=== PATIENT | female | born 1990 | race Two or more races ===

== ENCOUNTER 2024-06-09 07:30 | Inpatient (IN) ==
--- NOTE | 2024-05-27 15:39 | Anesthesiology Consultation ---
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 No known infectious disease contacts in past 10 days or current infectious disease symptoms. No recent travel outside the country. Patient seen by cardiology clinic 03/02/2024 = patient seen for initial cardiology clinic in the setting of IVF gestation. uncomplicated. Echo from today reviewed. Echo appears normal with no evidence of major congenital heart disease, myocardial dysfunction, rhythm disturbances, pericardial effusion or other acute cardiovascular concerns. No contraindications for her delivering at [facility] as she is planning. Pediatric cardiology team can be contacted anytime should there be an acute concern about the cardiovascular status. No need to follow her in cardiology clinic at this time nor do I see a need for empiric imaging of the fetus. Would recommend routine care and with nursery and well-child checks per AAP guidelines. ECHO 02/26/24= Normal LV/RV dimensions and systolic function. Normal LA/RA dimensions. Normal valve morphology/function. Normal cardiovascular sinus, heart rate and rhythm. No vascular abnormalities. No pericardial effusion. History Surgery Operation Date: 06/09/24 07:30 Proposed Procedures p Section (Delivery of Baby Through Abdominal Incision) - Awilda Hsieh MD Height/Weight Height: 5 ft 3 in Weight: 88.451 kg Allergies Allergy/AdvReac Type Severity Reaction Status Date / Time No Known Allergies Allergy Verified 05/27/24 14:39 Medications Home Medications Medication Instructions Recorded Confirmed Last Taken folic acid 1 mg tablet 800 mcg PO DAILY 05/29/22 05/27/24 05/14/24 21:00 omega-3 fatty acids 1,000 mg 1,400 mg PO DAILY 07/08/23 05/27/24 05/20/24 capsule calcium carbonate (Calcium 600) 600 mg PO DAILY 02/17/24 05/27/24 05/14/24 21:00 cholecalciferol (vitamin D3) 62.5 50 mcg PO DAILY 02/17/24 05/27/24 05/14/24 21:00 mcg (2,500 unit) capsule aspirin 81 mg capsule 81 mg PO DAILY 05/15/24 05/27/24 05/20/24 levothyroxine 75 mcg tablet 75 mcg PO QAM 05/27/24 05/27/24 Unknown biwbsqnr-hyk-[id number]-FA 1 mg 1 tab PO DAILY 05/27/24 05/27/24 Unknown tablet Past Medical History Medical History Fibroid outside uterus History of COVID-19 (2021) no current symptoms as of PAT nursing interview 05/27/24 History of endometriosis Hypothyroidism Unique anesthetic considerations on preoperative anesthesia assessment - no hx n/v with anesthesia, pt requests to have patch behind for c/s to prevent/precaution. - voices she had patch with endometriosis sx. Past Family History Family History Grandmother (Maternal) Diabetes Grandmother (Paternal) Diabetes Father Hypertension Denies family history of Ovarian cancer Myocardial infarction Breast cancer Lung cancer Colorectal cancer Stroke Past Surgical History Surgical History History of laparoscopic cholecystectomy History of surgery for endometriosis , laparoscopic History of surgery IVF tx x2. History of unilateral salpingectomy right Social History Smoking Status: Never smoker Do You Dip or Chew Tobacco: No Hx Alcohol Use: No (not in last 3 yrs, hx social prior) Hx Substance Use: No substance use type: does not use Testing Laboratory Results 04/25/24= TSH: 0.71
[2024-06-09] MEDS ORDERED: OXYTOCIN 30 UNITS/NSS 30 UNITS/500 ML BAG IV PRN (08:31)
[2024-06-09] MEDS ORDERED: CALCIUM CARBONATE 500 MG CHEWABLE TAB PO PRN (08:31)
[2024-06-09] MEDS ORDERED: LIDOCAINE 1% LOCAL 20 ML VIAL INFIL PRN (08:31)
[2024-06-09] MEDS: LACTATED RINGER'S 1,000 ML IV PRN (08:59)
[2024-06-09 09:26] LABS: Hematocrit (blood only) 39.8 % (37.0-47.0); Hemoglobin 13.3 g/dl (12.0-16.0); Mean Corpuscular Hemoglobin 29.3 pg (25.0-34.0); Mean Corpuscular Hgb Conc 33.4 g/dL (32.0-36.0); Mean Corpuscular Volume 87.7 fL (80.0-100.0); Mean Platelet Volume 13.5 fL (9.4-12.4); Platelet Count 122 K/uL (130-400); RDW Coefficient of Variation 13.1 % (11.5-14.5); Red Blood Count 4.54 M/uL (4.20-5.40); White Blood Count 8.26 K/ul (4.8-10.8)
--- NOTE | 2024-06-09 09:43 | History & Physical Report ---
Date of Service June 09, 2024 Assessment & Plan (1) resulting from in vitro fertilization, antepartum: (2) Hypothyroid in , antepartum: Plan 33 yo G1 at 39 1/7 wga presents for eiol as now cephalic VSS Fetus cat 1 Labor - closed, will start with pv cytotec after allowing to have toast as remained npo in case baby flipped again GBS neg epidural prn Admission and Anticipated Discharge Date Admission Date: June 09, 2024 History of Present Illness Chief Complaint: eIOL Primary Care Provider: Angel Torrez, 33 yo G1 at 39 1/7 wga presents for eiol. +FM; denies ctx, LOF, VB. 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 hx: G1 regular cycles denies hx stis Allergies Allergy/AdvReac Type Severity Reaction Status Date / Time No Known Allergies Allergy Verified 06/08/24 13:25 Home Medications Medication Instructions Recorded Confirmed Type folic acid 1 mg tablet 800 mcg PO DAILY 05/29/22 06/09/24 History calcium carbonate (Calcium 600) 600 mg PO DAILY 02/17/24 06/09/24 History cholecalciferol (vitamin D3) 62.5 50 mcg PO DAILY 02/17/24 06/09/24 History mcg (2,500 unit) capsule aspirin 81 mg capsule 81 mg PO DAILY 05/15/24 06/09/24 History levothyroxine 75 mcg tablet 75 mcg PO QAM 05/27/24 06/09/24 History qjuqpkjx-[id number]-Ll-FA 1 mg 1 tab PO DAILY 05/27/24 06/09/24 History tablet Patient History Medical History Fibroid outside uterus History of COVID-19 (2021) no current symptoms as of PAT nursing interview 05/27/24 History of endometriosis Hypothyroidism Unique anesthetic considerations on preoperative anesthesia assessment - no hx n/v with anesthesia, pt requests to have patch behind for c/s to prevent/precaution. - voices she had patch with endometriosis sx. Surgical History History of laparoscopic cholecystectomy History of surgery for endometriosis , laparoscopic History of surgery IVF tx x2. History of unilateral salpingectomy right Family History Grandmother (Maternal) Diabetes Grandmother (Paternal) Diabetes Father Hypertension Denies family history of Ovarian cancer Myocardial infarction Breast cancer Lung cancer Colorectal cancer Stroke Social History Smoking Status: Never smoker Second Hand Exposure: No; Do You Dip or Chew Tobacco: No; Hx Alcohol Use: No (not in last 3 yrs, hx social prior) Hx Substance Use: No Preferred Language: Occitan Communication Ability: Effective Visual Impairment: No Limitations Hearing Ability: Normal Critical Care Cns Required: No Beliefs That Will Affect Care: None marital status: marital status details: Devin Syed (35) [phone] Current Living Situation: Spouse Current Living Situation Comment: Pt lives with her current occupational status: 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 [employer] How many Children do You have: 0 Other Information That Helps Us Care for You: No Feels Safe at Home: Yes Safety Concerns: Feels Safe At This Time Childhood Exposure to Second-Hand Smoke: No caffeine: Yes Dental Care, Regularly: No Physical Activity Frequency: 5-6 Times per Week Seatbelt Use: always Sunscreen Use: Yes Assistive Devices: None Physical Exam Genitourinary: OB Exam Abdomen: + vertex (confirmed by bsus) and + estimated weight (7-8) Manual OB Exam: + cervical dilation (closed), + cervical effacement 50% and + station -2 OB Exam Monitor Tracing: + external FHT monitor used, + external uterine monitor used and + category I (135/mod/+accel/- decel) Results & Data Vital Signs (Past 12 Hours) Vital Signs Temp Pulse Resp BP O2 Del Method 06/09/24 09:00 88 128/81 06/09/24 08:28 71 130/76 06/09/24 08:22 97.9 F 115 H 18 132/80 Room Air 06/09/24 08:00 115 H 132/80 Laboratory Results OB Labs: Blood Type AB Positive 11/27/23 Antibody Screen NEGATIVE 11/27/23 Hgb 13.8 g/dl (12.0-16.0) 06/04/24 Hct 41.0 % (37.0-47.0) 06/04/24 MCV 88.7 fL (80.0-100.0) 06/04/24 Plt Count 136 K/uL (130-400) 06/04/24 Rubella IgG Antibody Immune (Immune) 11/27/23 Treponema pallidum Ab Negative (Negative) 03/25/24 Hep Bs Antigen Negative (Negative) 11/27/23 Hepatitis C Antibody Negative (Negative) 11/27/23 HIV 1&2 Ab/P24 Ag 4thGn Negative (Negative) 11/27/23 Glucose 1 Hr 50 gm 162 mg/dl (70-130) H 03/25/24 OB Optional Labs: Chlamydia trachomatis RNA Not Detected (NotDetected) 11/27/23 Neisseria gonorrhoeae RNA Not Detected (NotDetected) 11/27/23 Thyroid Stimulating Hormone (TSH) 1.541 uIu/ml (0.300-4.500) 07/07/23 gbs neg low risk cfdna Diagnostic Findings 05/20 EFW 45%, AC 43%, post plac Coding Level of Care Code None Diagnoses resulting from in vitro fertilization, antepartum O09.819 Hypothyroid in , antepartum O99.280; E03.9
[2024-06-09] MEDS: miSOPROStoL 25 MCG TAB PV STA (10:47)
--- NOTE | 2024-06-09 15:51 | Labor Progress Brief Note ---
Date of Service June 09, 2024 Subjective Feeling some cramps, painful when she has them Assessment & Plan (1) resulting from in vitro fertilization, antepartum: (2) Hypothyroid in , antepartum: Plan 33 yo G1 at 39 1/7 wga presents for eiol as now cephalic VSS Fetus cat 1 Labor - cervix a little lower and external os now starting to dilate but internal still closed. Will place another cytotec GBS neg epidural prn Admission and Anticipated Discharge Date Admission Date: June 09, 2024 Physical Exam Genitourinary: Manual OB Exam: + cervical dilation fingertip (external os 1, int os still closed), + cervical effacement 50% and + station -2 OB Exam Monitor Tracing: + external FHT monitor used, + external uterine monitor used (irreg ctx) and + category I (135/mod/+accel/-decel) Results & Data Vital Signs (Past 12 Hours) Vital Signs Temp Pulse Resp BP O2 Del Method 06/09/24 15:37 85 113/65 06/09/24 15:25 18 06/09/24 15:25 18 06/09/24 14:00 18 06/09/24 14:00 18 06/09/24 13:48 90 116/79 06/09/24 13:31 103 H 139/83 06/09/24 12:04 88 119/74 06/09/24 11:30 20 06/09/24 11:30 20 06/09/24 11:05 18 06/09/24 11:05 97.9 F 18 06/09/24 11:01 95 H 127/80 06/09/24 11:00 78 128/80 06/09/24 10:01 86 122/81 06/09/24 10:00 16 06/09/24 10:00 16 06/09/24 09:00 88 128/81 06/09/24 08:28 71 130/76 06/09/24 08:22 97.9 F 115 H 18 132/80 Room Air 06/09/24 08:00 115 H 132/80 Coding Level of Care Code None Diagnoses resulting from in vitro fertilization, antepartum O09.819 Hypothyroid in , antepartum O99.280; E03.9
[2024-06-09] MEDS: miSOPROStoL 25 MCG TAB PV ONE ×2 (15:59→20:48)
[2024-06-09] MEDS: miSOPROStoL 25 MCG TAB ONE (16:00)
--- NOTE | 2024-06-09 20:35 | Labor Progress Brief Note ---
Date of Service June 09, 2024 Subjective Feeling some more cramps Assessment & Plan (1) resulting from in vitro fertilization, antepartum: (2) Hypothyroid in , antepartum: Plan 33 yo G1 at 39 1/7 wga presents for eiol as now cephalic VSS Fetus cat 1 Labor - able to insert one finger to internal os now and palpate head, however cervix still very long. Would benefit from another dose of cytotec before trying bulb GBS neg epidural prn Admission and Anticipated Discharge Date Admission Date: June 09, 2024 Physical Exam Genitourinary: Manual OB Exam: + cervical dilation 1 cm, + cervical effacement 20% and + station -2 OB Exam Monitor Tracing: + external FHT monitor used, + external uterine monitor used (q5-7) and + category I (135/mod/+accel/-decel) Results & Data Vital Signs (Past 12 Hours) Vital Signs Temp Pulse Resp BP 06/09/24 19:03 78 134/81 06/09/24 19:00 98.1 F 18 06/09/24 18:02 95 H 126/62 06/09/24 17:07 83 121/72 06/09/24 16:37 78 120/77 06/09/24 16:07 77 118/73 06/09/24 15:55 16 06/09/24 15:55 98.1 F 16 06/09/24 15:37 85 113/65 06/09/24 15:25 18 06/09/24 15:25 18 06/09/24 14:00 18 06/09/24 14:00 18 06/09/24 13:48 90 116/79 06/09/24 13:31 103 H 139/83 06/09/24 12:04 88 119/74 06/09/24 11:30 20 06/09/24 11:30 20 06/09/24 11:05 18 06/09/24 11:05 97.9 F 18 06/09/24 11:01 95 H 127/80 06/09/24 11:00 78 128/80 06/09/24 10:01 86 122/81 06/09/24 10:00 16 06/09/24 10:00 16 06/09/24 09:00 88 128/81 Coding Level of Care Code None Diagnoses resulting from in vitro fertilization, antepartum O09.819 Hypothyroid in , antepartum O99.280; E03.9
[2024-06-10] MEDS ORDERED: ePHEDrine sulfate 50 MG/ML AMP IV PRN (02:04)
[2024-06-10] MEDS ORDERED: NALOXONE HCL 1 MG in SODIUM CHLORIDE 0.9% 1,000 ML IV PRN ×2 (02:04→14:20)
[2024-06-10] MEDS ORDERED: BUPIVACAINE 0.25% PF 30 ML VIAL EPI PRN (02:04)
[2024-06-10] MEDS ORDERED: NALBUPHINE HCL INJ 10 MG/ML AMP IV PRN ×2 (02:04→14:20)
[2024-06-10] MEDS ORDERED: SODIUM CHLORIDE 0.9% PF INJ 10 ML VIAL EPI PRN (02:04)
[2024-06-10] MEDS ORDERED: diphenhydrAMINE 50 MG/ML VIAL IV PRN ×2 (02:04→14:20)
[2024-06-10] MEDS ORDERED: LIDOCAINE 2% MPF LOCAL 5 ML VIAL EPI PRN (02:04)
[2024-06-10] MEDS ORDERED: ROPIVACAINE 0.5% PF 5 MG/ML 20 ML VIAL EPI PRN (02:04)
[2024-06-10] MEDS ORDERED: fentaNYL citrate PF 100 MCG/2 ML VIAL EPI PRN (02:04)
[2024-06-10] MEDS ORDERED: NALOXONE HCL 0.4 MG/1 ML VIAL/CARP IV PRN ×2 (02:04→14:20)
--- NOTE | 2024-06-10 02:06 | Anesthesiology Consultation ---
Date of Service June 10, 2024 Assessment & Plan (1) Encounter for pre-operative examination: Chart Review Chart Review: Patient NOT seen in Pre Admission Testing and Acceptable Risk for Labor Epidural Consults Requested none History Surgery Operation Date: 06/09/24 07:30 Proposed Procedures p Section (Delivery of Baby Through Abdominal Incision) - Awilda Hsieh MD Height/Weight Height: 5 ft 3 in Weight: 90.718 kg Allergies Allergy/AdvReac Type Severity Reaction Status Date / Time No Known Allergies Allergy Verified 06/08/24 13:25 Medications Home Medications Medication Instructions Recorded Confirmed Last Taken folic acid 1 mg tablet 800 mcg PO DAILY 05/29/22 06/09/24 06/08/24 20:00 calcium carbonate (Calcium 600) 600 mg PO DAILY 02/17/24 06/09/24 06/08/24 20:00 cholecalciferol (vitamin D3) 62.5 50 mcg PO DAILY 02/17/24 06/09/24 06/08/24 20:00 mcg (2,500 unit) capsule aspirin 81 mg capsule 81 mg PO DAILY 05/15/24 06/09/24 06/08/24 10:00 levothyroxine 75 mcg tablet 75 mcg PO QAM 05/27/24 06/09/24 06/09/24 05:00 ehkrimgd-qxx-Yq-FA 1 mg 1 tab PO DAILY 05/27/24 06/09/24 06/08/24 20:00 tablet Active Medications Generic Name Dose Route Start Last Admin Trade Name Freq PRN Reason Stop Dose Admin Lactated Ringer's 1,000 mls @ 125 mls/hr 06/09/24 08:31 06/10/24 01:30 Lr IV 06/10/24 08:30 999 mls/hr .Q8H PRN Infusion L&D Protocol Protocol Past Medical History Medical History History of COVID-19 (2021) no current symptoms as of PAT nursing interview 05/27/24 Unique anesthetic considerations on preoperative anesthesia assessment - no hx n/v with anesthesia, pt requests to have patch behind for c/s to prevent/precaution. - voices she had patch with endometriosis sx. Fibroid outside uterus History of endometriosis Hypothyroidism Past Family History Family History Grandmother (Maternal) Diabetes Grandmother (Paternal) Diabetes Father Hypertension Denies family history of Ovarian cancer Myocardial infarction Breast cancer Lung cancer Colorectal cancer Stroke Past Surgical History Surgical History History of surgery IVF tx x2. History of surgery for endometriosis , laparoscopic History of unilateral salpingectomy right History of laparoscopic cholecystectomy Social History Smoking Status: Never smoker Do You Dip or Chew Tobacco: No Hx Alcohol Use: No (not in last 3 yrs, hx social prior) Hx Substance Use: No substance use type: does not use Physical Exam Vital Signs Last Vital Signs Temp 98.1 F 06/09/24 22:43 Pulse 78 06/10/24 01:56 Resp 18 06/09/24 22:43 BP 112/71 06/09/24 23:10 Pulse Ox 99 06/10/24 01:56 O2 Del Method Room Air 06/09/24 08:22 Testing Laboratory Results 06/09/24 08:55 Blood Type AB Positive 06/09/24 08:55 Antibody Screen NEGATIVE 06/09/24 08:55
[2024-06-10] MEDS: BUPIVACAINE 0.25% PF 30 ML VIAL ONE (02:32)
[2024-06-10] MEDS: fentaNYL citrate PF 100 MCG/2 ML VIAL ONE (02:32)
[2024-06-10] MEDS: LIDOCAINE 2%/EPINEPHRINE 1:200,000 20 ML PF ONE (02:32)
[2024-06-10] MEDS: SODIUM CHLORIDE 0.9% PF INJ 10 ML VIAL ONE (02:32)
[2024-06-10] MEDS: fentANYL 2 MCG/ML BUPIVacaine 0.125%-NSS 100ML BAG ONE (02:33)
[2024-06-10] MEDS: ePHEDrine sulfate 50 MG/ML AMP ONE (02:36)
[2024-06-10] MEDS: BUPIVACAINE 0.25% PF 30 ML VIAL EPI STA (02:36)
[2024-06-10] MEDS: LIDOCAINE 2%/EPINEPHRINE 1:200,000 20 ML PF EPI STA (02:37)
[2024-06-10] MEDS: fentaNYL citrate PF 100 MCG/2 ML VIAL EPI STA (02:37)
[2024-06-10] MEDS: SODIUM CHLORIDE 0.9% PF INJ 10 ML VIAL EPI STA (02:37)
--- NOTE | 2024-06-10 03:15 | Labor Progress Brief Note ---
Date of Service June 10, 2024 Subjective resting after epidural Assessment & Plan (1) resulting from in vitro fertilization, antepartum: (2) Hypothyroid in , antepartum: Plan 33 yo G1 at 39 1/7 wga presents for eiol as now cephalic VSS Fetus cat 1 Labor - discussed gonzalez bulb placement during last check and pt desired epidural first, now has gotten it so 35cc bulb placed after verbal consent obtained. Will start pit as well GBS neg epidural in place Admission and Anticipated Discharge Date Admission Date: June 09, 2024 Physical Exam Genitourinary: OB Exam Abdomen: + vertex (confirmed by bsus) Manual OB Exam: + cervical dilation 1 cm, + cervical effacement 30% and + station -2 OB Exam Monitor Tracing: + external FHT monitor used, + external uterine monitor used (q5-7) and + category I (135/mod/+accel/-decel) Results & Data Vital Signs (Past 12 Hours) Vital Signs Temp Pulse Resp BP Pulse Ox 06/10/24 03:08 94 H 97 06/10/24 03:03 98 06/10/24 03:03 70 06/10/24 03:03 75 94/55 L 06/10/24 02:58 77 96/52 L 97 06/10/24 02:53 97 06/10/24 02:53 86 06/10/24 02:53 85 99/57 L 06/10/24 02:48 98 06/10/24 02:48 80 06/10/24 02:48 95 H 97/54 L 06/10/24 02:43 93 H 98 06/10/24 02:42 96 H 106/57 L 06/10/24 02:40 16 06/10/24 02:40 86 16 104/58 L 06/10/24 02:38 92 H 111/58 L 97 06/10/24 02:36 91 H 110/59 L 06/10/24 02:35 18 06/10/24 02:35 18 06/10/24 02:34 89 112/60 06/10/24 02:33 85 97 06/10/24 02:32 82 112/62 06/10/24 02:30 96 H 18 134/86 06/10/24 02:28 97 06/10/24 02:28 93 H 06/10/24 02:28 88 130/81 06/10/24 02:23 86 97 06/10/24 02:18 94 H 99 06/10/24 02:13 73 98 06/10/24 02:08 82 98 06/10/24 01:56 78 99 06/10/24 01:51 80 98 06/10/24 01:46 73 98 06/10/24 01:41 77 98 06/10/24 01:36 78 98 06/09/24 23:10 76 112/71 06/09/24 23:09 80 137/93 06/09/24 22:47 82 127/93 06/09/24 22:43 18 06/09/24 22:43 98.1 F 18 06/09/24 19:03 78 134/81 06/09/24 19:00 98.1 F 18 06/09/24 18:02 95 H 126/62 06/09/24 17:07 83 121/72 06/09/24 16:37 78 120/77 06/09/24 16:07 77 118/73 06/09/24 15:55 16 06/09/24 15:55 98.1 F 16 06/09/24 15:37 85 113/65 06/09/24 15:25 18 06/09/24 15:25 18 Coding Level of Care Code None Diagnoses resulting from in vitro fertilization, antepartum O09.819 Hypothyroid in , antepartum O99.280; E03.9
[2024-06-10] MEDS: OXYTOCIN 30 UNITS/NSS 30 UNITS/500 ML BAG IV PRN (03:48)
--- NOTE | 2024-06-10 08:11 | Labor Progress Brief Note ---
Date of Service June 10, 2024 Subjective comfortable w/ epidural. Informed by nursing that difficult to go up on pitocin due to decels Assessment & Plan (1) resulting from in vitro fertilization, antepartum: (2) Hypothyroid in , antepartum: Plan 33 yo G1 at 39 1/7 wga presents for eiol as now cephalic VSS Fetus cat 2 Labor - following bulb placement, pitocin was started and currently at 3. Variability has been min-mod throughout but accels were still noted and w/o decels prior. Following bulb, more min variability, few lates were noted when pitocin increased to 5 but resolved after going back to 3. Fewer accels noted. Discussed concern for possibility of intolerance to labor, will try to reposition and bolus, etc but reviewed may be that baby will not tolerate as still very early on in process and cs may be indicated GBS neg epidural in place Admission and Anticipated Discharge Date Admission Date: June 09, 2024 Physical Exam Genitourinary: OB Exam Monitor Tracing: + external FHT monitor used, + external uterine monitor used (q5-7) and + category II (130/min/prev had accels but not recently/few lates that resolved) Results & Data Vital Signs (Past 12 Hours) Vital Signs Temp Pulse Resp BP Pulse Ox O2 Del Method 06/10/24 08:06 87 97/57 L 06/10/24 08:05 103 H 82/50 L 06/10/24 08:03 86 99 06/10/24 07:58 98 H 100 06/10/24 07:53 75 100 06/10/24 07:50 78 135/70 06/10/24 07:48 78 100 06/10/24 07:43 77 100 06/10/24 07:38 85 100 06/10/24 07:37 89 155/95 H 06/10/24 07:33 81 100 06/10/24 07:28 70 100 06/10/24 07:24 78 92 06/10/24 07:23 79 95 06/10/24 07:19 75 105/61 06/10/24 07:18 78 100 06/10/24 07:16 Room Air 06/10/24 07:13 77 97/57 L 100 06/10/24 07:08 73 100 06/10/24 07:05 72 97/56 L 06/10/24 07:03 74 100 03/21/25 06:58 71 100 06/10/24 06:57 74 92 06/10/24 06:53 78 100 06/10/24 06:48 91 H 88 L 06/10/24 06:44 79 141/61 H 06/10/24 06:43 81 95 06/10/24 06:41 82/58 L 06/10/24 06:38 70 100 06/10/24 06:37 75 89 L 06/10/24 06:35 71 81/53 L 06/10/24 06:33 69 98 06/10/24 06:28 75 100 06/10/24 06:23 70 100 06/10/24 06:22 74 94/52 L 06/10/24 06:18 65 99 06/10/24 06:13 76 99 06/10/24 06:08 74 99 06/10/24 06:05 66 104/59 L 06/10/24 06:03 78 100 06/10/24 05:58 70 100 06/10/24 05:53 82 97 06/10/24 05:48 97 06/10/24 05:48 98 H 06/10/24 05:48 99 H 115/70 06/10/24 05:47 75 92 06/10/24 05:43 68 97 06/10/24 05:38 89 97 06/10/24 05:37 18 06/10/24 05:37 18 06/10/24 05:36 84 107/69 06/10/24 05:33 68 96 06/10/24 05:28 67 96 06/10/24 05:23 84 97 06/10/24 05:20 67 108/61 06/10/24 05:18 67 96 06/10/24 05:13 69 97 06/10/24 05:08 72 97 06/10/24 05:05 68 117/69 06/10/24 05:03 72 95 06/10/24 05:00 18 06/10/24 05:00 18 06/10/24 04:58 68 96 06/10/24 04:53 69 96 06/10/24 04:50 66 125/70 06/10/24 04:48 69 96 06/10/24 04:43 68 98 06/10/24 04:38 72 96 06/10/24 04:36 76 94 06/10/24 04:35 74 94/51 L 06/10/24 04:33 74 94 06/10/24 04:31 75 94 06/10/24 04:28 77 95 06/10/24 04:23 69 94 06/10/24 04:21 75 94 06/10/24 04:20 74 105/56 L 06/10/24 04:18 72 95 06/10/24 04:13 76 95 06/10/24 04:12 78 94 06/10/24 04:08 76 95 06/10/24 04:05 76 102/54 L 06/10/24 04:03 70 95 06/10/24 04:00 18 06/10/24 04:00 18 06/10/24 03:58 70 95 06/10/24 03:53 74 98 06/10/24 03:50 113/55 L 06/10/24 03:48 81 16 98 06/10/24 03:43 75 96 06/10/24 03:38 87 98 06/10/24 03:35 75 111/63 06/10/24 03:33 85 97 06/10/24 03:28 90 98 06/10/24 03:23 73 98 06/10/24 03:20 76 110/57 L 06/10/24 03:18 81 98 06/10/24 03:13 87 97 06/10/24 03:08 94 H 97 06/10/24 03:03 98 06/10/24 03:03 70 06/10/24 03:03 75 94/55 L 06/10/24 02:58 98.1 F 77 18 96/52 L 97 06/10/24 02:53 97 06/10/24 02:53 86 06/10/24 02:53 85 99/57 L 06/10/24 02:48 98 06/10/24 02:48 80 06/10/24 02:48 95 H 97/54 L 06/10/24 02:43 93 H 98 06/10/24 02:42 96 H 106/57 L 06/10/24 02:40 16 06/10/24 02:40 86 16 104/58 L 06/10/24 02:38 92 H 111/58 L 97 06/10/24 02:36 91 H 110/59 L 06/10/24 02:35 18 06/10/24 02:35 18 06/10/24 02:34 89 112/60 06/10/24 02:33 85 97 06/10/24 02:32 82 112/62 06/10/24 02:30 96 H 18 134/86 06/10/24 02:28 97 06/10/24 02:28 93 H 06/10/24 02:28 88 130/81 06/10/24 02:23 86 97 06/10/24 02:18 94 H 99 06/10/24 02:13 73 98 06/10/24 02:08 82 98 06/10/24 01:56 78 99 06/10/24 01:51 80 98 06/10/24 01:46 73 98 06/10/24 01:41 77 98 06/10/24 01:36 78 98 06/09/24 23:10 76 112/71 06/09/24 23:09 80 137/93 06/09/24 22:47 82 127/93 06/09/24 22:43 18 06/09/24 22:43 98.1 F 18 Coding Level of Care Code None Diagnoses resulting from in vitro fertilization, antepartum O09.819 Hypothyroid in , antepartum O99.280; E03.9
--- NOTE | 2024-06-10 09:36 | Labor Progress Brief Note ---
Date of Service June 10, 2024 Subjective pt comfortable with epidural Assessment & Plan (1) Encounter for induction of labor: (2) resulting from in vitro fertilization, antepartum: (3) Elderly primigravida: Plan able to arom and place iupc. will increase pitocin to achieve adequate mvu's. fhts categ 1 currently, watch closely. Admission and Anticipated Discharge Date Admission Date: June 09, 2024 Physical Exam Constitutional: WD/WN, vitals as above Genitourinary: Manual OB Exam: + cervical dilation (balloon removed, cx 3- 4cm), + cervical effacement 50%, + station -2 (anterior) and + amniotic fluid (arom) clear OB Exam Monitor Tracing: + external FHT monitor used, + external uterine monitor used, + intra-uterine pressure catheter used (placed pit at 5, initial mvu's inadequate), + category I and + normal FHT variability Results & Data Vital Signs (Past 12 Hours) Vital Signs Temp Pulse Resp BP Pulse Ox O2 Del Method 06/10/24 09:28 71 100 06/10/24 09:23 79 99 06/10/24 09:20 83 167/76 H 06/10/24 09:18 84 100 06/10/24 09:13 84 100 06/10/24 09:08 79 100 06/10/24 09:05 82 133/81 06/10/24 09:03 82 99 06/10/24 09:00 18 06/10/24 09:00 18 06/10/24 08:58 88 99 06/10/24 08:53 102 H 98 06/10/24 08:50 96 H 124/75 06/10/24 08:48 96 H 97 06/10/24 08:43 100 H 100 06/10/24 08:38 84 100 06/10/24 08:36 101 H 136/80 06/10/24 08:33 84 100 06/10/24 08:28 82 100 06/10/24 08:23 73 98 06/10/24 08:21 67 108/62 06/10/24 08:18 73 98 06/10/24 08:14 75 102/57 L 06/10/24 08:13 92 H 98 06/10/24 08:08 84 99 06/10/24 08:06 87 97/57 L 06/10/24 08:05 103 H 82/50 L 06/10/24 08:03 86 99 06/10/24 07:58 98 H 100 06/10/24 07:53 75 100 06/10/24 07:50 78 135/70 06/10/24 07:48 78 100 06/10/24 07:43 77 100 06/10/24 07:38 85 100 06/10/24 07:37 89 155/95 H 06/10/24 07:33 81 100 06/10/24 07:28 70 100 06/10/24 07:24 78 92 06/10/24 07:23 79 95 06/10/24 07:19 75 105/61 06/10/24 07:18 78 100 06/10/24 07:16 Room Air 06/10/24 07:13 77 97/57 L 100 06/10/24 07:08 73 100 06/10/24 07:05 72 97/56 L 06/10/24 07:03 74 100 06/10/24 06:58 71 100 06/10/24 06:57 74 92 06/10/24 06:53 78 100 06/10/24 06:48 91 H 88 L 06/10/24 06:44 79 141/61 H 06/10/24 06:43 81 95 06/10/24 06:41 82/58 L 06/10/24 06:38 70 100 06/10/24 06:37 75 89 L 06/10/24 06:35 71 81/53 L 06/10/24 06:33 69 98 06/10/24 06:28 75 100 06/10/24 06:23 70 100 06/10/24 06:22 74 94/52 L 06/10/24 06:18 65 99 06/10/24 06:13 76 99 06/10/24 06:08 74 99 06/10/24 06:05 66 104/59 L 06/10/24 06:03 78 100 06/10/24 05:58 70 100 06/10/24 05:53 82 97 06/10/24 05:48 97 06/10/24 05:48 98 H 06/10/24 05:48 99 H 115/70 06/10/24 05:47 75 92 06/10/24 05:43 68 97 06/10/24 05:38 89 97 06/10/24 05:37 18 06/10/24 05:37 18 06/10/24 05:36 84 107/69 06/10/24 05:33 68 96 06/10/24 05:28 67 96 06/10/24 05:23 84 97 06/10/24 05:20 67 108/61 06/10/24 05:18 67 96 06/10/24 05:13 69 97 06/10/24 05:08 72 97 06/10/24 05:05 68 117/69 06/10/24 05:03 72 95 06/10/24 05:00 18 06/10/24 05:00 18 06/10/24 04:58 68 96 06/10/24 04:53 69 96 06/10/24 04:50 66 125/70 06/10/24 04:48 69 96 06/10/24 04:43 68 98 06/10/24 04:38 72 96 06/10/24 04:36 76 94 06/10/24 04:35 74 94/51 L 06/10/24 04:33 74 94 06/10/24 04:31 75 94 06/10/24 04:28 77 95 06/10/24 04:23 69 94 06/10/24 04:21 75 94 06/10/24 04:20 74 105/56 L 06/10/24 04:18 72 95 06/10/24 04:13 76 95 06/10/24 04:12 78 94 06/10/24 04:08 76 95 06/10/24 04:05 76 102/54 L 06/10/24 04:03 70 95 06/10/24 04:00 18 06/10/24 04:00 18 06/10/24 03:58 70 95 06/10/24 03:53 74 98 06/10/24 03:50 113/55 L 06/10/24 03:48 81 16 98 06/10/24 03:43 75 96 06/10/24 03:38 87 98 06/10/24 03:35 75 111/63 06/10/24 03:33 85 97 06/10/24 03:28 90 98 06/10/24 03:23 73 98 06/10/24 03:20 76 110/57 L 06/10/24 03:18 81 98 06/10/24 03:13 87 97 06/10/24 03:08 94 H 97 06/10/24 03:03 98 06/10/24 03:03 70 06/10/24 03:03 75 94/55 L 06/10/24 02:58 98.1 F 77 18 96/52 L 97 06/10/24 02:53 97 06/10/24 02:53 86 06/10/24 02:53 85 99/57 L 06/10/24 02:48 98 06/10/24 02:48 80 06/10/24 02:48 95 H 97/54 L 06/10/24 02:43 93 H 98 06/10/24 02:42 96 H 106/57 L 06/10/24 02:40 16 06/10/24 02:40 86 16 104/58 L 06/10/24 02:38 92 H 111/58 L 97 06/10/24 02:36 91 H 110/59 L 06/10/24 02:35 18 06/10/24 02:35 18 06/10/24 02:34 89 112/60 06/10/24 02:33 85 97 06/10/24 02:32 82 112/62 06/10/24 02:30 96 H 18 134/86 06/10/24 02:28 97 06/10/24 02:28 93 H 06/10/24 02:28 88 130/81 06/10/24 02:23 86 97 06/10/24 02:18 94 H 99 06/10/24 02:13 73 98 06/10/24 02:08 82 98 06/10/24 01:56 78 99 06/10/24 01:51 80 98 06/10/24 01:46 73 98 06/10/24 01:41 77 98 06/10/24 01:36 78 98 06/09/24 23:10 76 112/71 06/09/24 23:09 80 137/93 06/09/24 22:47 82 127/93 06/09/24 22:43 18 06/09/24 22:43 98.1 F 18 Coding Level of Care Code None Diagnoses Encounter for induction of labor Z34.90 resulting from in vitro fertilization, antepartum O09.819 Elderly primigravida O09.519
[2024-06-10] MEDS: LACTATED RINGER'S 1,000 ML IV SCH ×2 (11:04→15:32)
[2024-06-10] MEDS: fentANYL 2 MCG/ML BUPIVacaine 0.125%-NSS 100ML BAG EPI PRN (12:16)
[2024-06-10] MEDS ORDERED: DEXAMETHASONE SOD INJ 4 MG/ML VIAL ONE ×2 (13:23)
[2024-06-10] MEDS ORDERED: PHENYLEPHRINE HCL 25 MG/250 ML NSS IV ONE (13:23)
[2024-06-10] MEDS ORDERED: ONDANSETRON INJ 2 MG/ML 2 ML VIAL ONE (13:23)
[2024-06-10] MEDS ORDERED: LIDOCAINE 2%/EPINEPHRINE 1:200,000 20 ML PF ONE (13:23)
[2024-06-10] MEDS ORDERED: MoRPHine SULFATE PF 1 MG/ML 10 ML AMP/VIAL ONE (13:23)
[2024-06-10] MEDS: ACETAMINOPHEN 500 MG TAB PO PRN (13:25)
--- NOTE | 2024-06-10 13:39 | Labor Progress Brief Note ---
Date of Service June 10, 2024 Subjective Comfortable with epidural Assessment & Plan (1) Encounter for induction of labor: Plan: Patient electing to move to at this time. distress noted intermittently and she wishes to prioritize well being, so declines option to continue IOL. Admission and Anticipated Discharge Date Admission Date: June 09, 2024 Physical Exam Genitourinary: 3cm/90/-2 Clear fluid FHT Cat 2 with low variability, late decels. [place] very low MVU despite pit @ 19, IUPC replaced and first few ctx with 60-70 MVU per contractions. Prior monitor suspected of not working well. Results & Data Vital Signs (Past 12 Hours) Vital Signs Temp Pulse Resp BP Pulse Ox O2 Del Method 06/10/24 13:20 78 134/81 06/10/24 13:04 87 133/91 06/10/24 13:03 83 100 06/10/24 12:58 86 100 06/10/24 12:53 93 H 100 06/10/24 12:49 86 123/75 06/10/24 12:48 73 100 06/10/24 12:43 82 100 06/10/24 12:38 72 99 06/10/24 12:35 84 127/78 06/10/24 12:33 101 H 100 06/10/24 12:30 18 06/10/24 12:30 18 06/10/24 12:28 82 99 06/10/24 12:23 100 H 99 06/10/24 12:21 88 136/79 06/10/24 12:18 84 99 06/10/24 12:13 90 98 06/10/24 12:08 81 98 06/10/24 12:04 82 127/75 06/10/24 12:03 77 98 06/10/24 12:00 16 06/10/24 12:00 16 06/10/24 11:58 92 H 98 06/10/24 11:53 75 97 06/10/24 11:50 76 126/73 06/10/24 11:48 80 98 06/10/24 11:43 79 99 06/10/24 11:38 78 98 06/10/24 11:35 79 139/80 06/10/24 11:33 87 100 06/10/24 11:30 18 06/10/24 11:30 18 06/10/24 11:28 80 100 06/10/24 11:23 86 100 06/10/24 11:20 92 H 130/79 06/10/24 11:18 88 100 06/10/24 11:13 94 H 100 06/10/24 11:09 99 H 92 06/10/24 11:08 83 100 06/10/24 11:05 83 138/81 06/10/24 11:03 80 100 06/10/24 11:02 20 06/10/24 11:02 98.4 F 20 06/10/24 11:00 20 06/10/24 11:00 20 06/10/24 10:58 95 H 98 06/10/24 10:53 75 98 06/10/24 10:50 87 125/76 06/10/24 10:48 87 97 06/10/24 10:43 87 97 06/10/24 10:39 72 109/56 L 06/10/24 10:38 75 99 06/10/24 10:33 75 99 06/10/24 10:30 90 18 94 06/10/24 10:28 95 H 98 06/10/24 10:24 110 H 104/59 L 06/10/24 10:23 110 H 99 06/10/24 10:20 91 H 90 06/10/24 10:18 85 99 06/10/24 10:13 78 98 06/10/24 10:08 96 H 98 06/10/24 10:07 92 H 140/83 06/10/24 10:05 95 H 92 06/10/24 10:03 91 H 97 06/10/24 10:00 18 06/10/24 10:00 18 06/10/24 09:58 83 97 06/10/24 09:53 77 98 06/10/24 09:50 81 142/83 H 06/10/24 09:48 84 99 06/10/24 09:43 87 99 06/10/24 09:38 75 99 06/10/24 09:36 82 116/57 L 06/10/24 09:35 81 92 06/10/24 09:33 98.2 F 82 16 100 06/10/24 09:30 16 06/10/24 09:30 16 06/10/24 09:28 71 100 06/10/24 09:23 79 99 06/10/24 09:20 83 167/76 H 06/10/24 09:18 84 100 06/10/24 09:13 84 100 06/10/24 09:08 79 100 06/10/24 09:05 82 133/81 06/10/24 09:03 82 99 06/10/24 09:00 18 06/10/24 09:00 18 06/10/24 08:58 88 99 06/10/24 08:53 102 H 98 06/10/24 08:50 96 H 124/75 06/10/24 08:48 96 H 97 06/10/24 08:43 100 H 100 06/10/24 08:38 84 100 06/10/24 08:36 101 H 136/80 06/10/24 08:33 84 100 06/10/24 08:28 82 100 06/10/24 08:23 73 98 06/10/24 08:21 67 108/62 06/10/24 08:18 73 98 06/10/24 08:14 75 102/57 L 06/10/24 08:13 92 H 98 06/10/24 08:08 84 99 06/10/24 08:06 87 97/57 L 06/10/24 08:05 103 H 82/50 L 06/10/24 08:03 86 99 06/10/24 07:58 98 H 100 06/10/24 07:53 75 100 06/10/24 07:50 78 135/70 06/10/24 07:48 78 100 06/10/24 07:43 77 100 06/10/24 07:38 85 100 06/10/24 07:37 89 155/95 H 06/10/24 07:33 81 100 06/10/24 07:28 70 100 06/10/24 07:24 78 92 06/10/24 07:23 79 95 06/10/24 07:19 75 105/61 06/10/24 07:18 78 100 06/10/24 07:16 Room Air 06/10/24 07:13 77 97/57 L 100 06/10/24 07:08 73 100 06/10/24 07:05 72 97/56 L 06/10/24 07:03 74 100 06/10/24 06:58 71 100 06/10/24 06:57 74 92 06/10/24 06:53 78 100 06/10/24 06:48 91 H 88 L 06/10/24 06:44 79 141/61 H 06/10/24 06:43 81 95 06/10/24 06:41 82/58 L 06/10/24 06:38 70 100 06/10/24 06:37 75 89 L 06/10/24 06:35 71 81/53 L 06/10/24 06:33 69 98 06/10/24 06:28 75 100 06/10/24 06:23 70 100 06/10/24 06:22 74 94/52 L 06/10/24 06:18 65 99 06/10/24 06:13 76 99 06/10/24 06:08 74 99 06/10/24 06:05 66 104/59 L 06/10/24 06:03 78 100 06/10/24 05:58 70 100 06/10/24 05:53 82 97 06/10/24 05:48 97 06/10/24 05:48 98 H 06/10/24 05:48 99 H 115/70 06/10/24 05:47 75 92 06/10/24 05:43 68 97 06/10/24 05:38 89 97 06/10/24 05:37 18 06/10/24 05:37 18 06/10/24 05:36 84 107/69 06/10/24 05:33 68 96 06/10/24 05:28 67 96 06/10/24 05:23 84 97 06/10/24 05:20 67 108/61 06/10/24 05:18 67 96 06/10/24 05:13 69 97 06/10/24 05:08 72 97 06/10/24 05:05 68 117/69 06/10/24 05:03 72 95 06/10/24 05:00 18 06/10/24 05:00 18 06/10/24 04:58 68 96 06/10/24 04:53 69 96 06/10/24 04:50 66 125/70 06/10/24 04:48 69 96 06/10/24 04:43 68 98 06/10/24 04:38 72 96 06/10/24 04:36 76 94 06/10/24 04:35 74 94/51 L 06/10/24 04:33 74 94 06/10/24 04:31 75 94 06/10/24 04:28 77 95 06/10/24 04:23 69 94 06/10/24 04:21 75 94 06/10/24 04:20 74 105/56 L 06/10/24 04:18 72 95 06/10/24 04:13 76 95 06/10/24 04:12 78 94 06/10/24 04:08 76 95 06/10/24 04:05 76 102/54 L 06/10/24 04:03 70 95 06/10/24 04:00 18 06/10/24 04:00 18 06/10/24 03:58 70 95 06/10/24 03:53 74 98 06/10/24 03:50 113/55 L 06/10/24 03:48 81 16 98 06/10/24 03:43 75 96 06/10/24 03:38 87 98 06/10/24 03:35 75 111/63 06/10/24 03:33 85 97 06/10/24 03:28 90 98 06/10/24 03:23 73 98 06/10/24 03:20 76 110/57 L 06/10/24 03:18 81 98 06/10/24 03:13 87 97 06/10/24 03:08 94 H 97 06/10/24 03:03 98 06/10/24 03:03 70 06/10/24 03:03 75 94/55 L 06/10/24 02:58 98.1 F 77 18 96/52 L 97 06/10/24 02:53 97 06/10/24 02:53 86 06/10/24 02:53 85 99/57 L 06/10/24 02:48 98 06/10/24 02:48 80 06/10/24 02:48 95 H 97/54 L 06/10/24 02:43 93 H 98 06/10/24 02:42 96 H 106/57 L 06/10/24 02:40 16 06/10/24 02:40 86 16 104/58 L 06/10/24 02:38 92 H 111/58 L 97 06/10/24 02:36 91 H 110/59 L 06/10/24 02:35 18 06/10/24 02:35 18 06/10/24 02:34 89 112/60 06/10/24 02:33 85 97 06/10/24 02:32 82 112/62 06/10/24 02:30 96 H 18 134/86 06/10/24 02:28 97 06/10/24 02:28 93 H 06/10/24 02:28 88 130/81 06/10/24 02:23 86 97 06/10/24 02:18 94 H 99 06/10/24 02:13 73 98 06/10/24 02:08 82 98 06/10/24 01:56 78 99 06/10/24 01:51 80 98 06/10/24 01:46 73 98 06/10/24 01:41 77 98 06/10/24 01:36 78 98 Coding Level of Care Code None Diagnoses Encounter for induction of labor Z34.90
[2024-06-10] MEDS: CITRIC ACID/SODIUM CITRATE 15 ML UDC PO SCH (13:45)
[2024-06-10] MEDS ORDERED: ceFAZolin 3000MG 3,000 MG/72.5 ML BAG IV SCH (13:45)
[2024-06-10] MEDS ORDERED: AZITHROMYCIN 500 MG/255 ML BAG IV SCH (13:45)
[2024-06-10] MEDS ORDERED: ONDANSETRON INJ 2 MG/ML 2 ML VIAL IV PRN (14:20)
[2024-06-10] MEDS ORDERED: PROMETHAZINE 6.25 MG/50.25 ML BAG IV PRN (14:20)
[2024-06-10] MEDS ORDERED: HYDROmorphone INJ 0.5 MG/0.5 ML SYR IV PRN (14:20)
[2024-06-10] MEDS ORDERED: oxyCODONE HCL IR 5 MG TAB (IMMEDIATE RELEASE) PO PRN (14:20)
[2024-06-10] MEDS ORDERED: NALOXONE HCL 0.08 MG in SYRINGE 1.8 ML IV PRN (14:20)
[2024-06-10] MEDS ORDERED: NO NARCOTICS OR SEDATIVES SCH (14:30)
[2024-06-10] MEDS ORDERED: DC INTRASPINAL MORPHINE SCH (14:30)
[2024-06-10] MEDS: OXYTOCIN 20 UNITS/LR 1,002 ML IV SCH (14:35)
--- NOTE | 2024-06-10 14:38 | Operative Report ---
PG Post Operative Report Pre & Post Diagnosis Operation Date: 06/10/24 13:35 [facility] @ Term Failure to progress in labor Suspected CPD Nonreassuring Heart Tones I identified the patient and participated in the time-out.: Yes Procedure Operation Date: 06/10/24 13:35 Actual Procedures Primary Low Transverse Section Surgeon Lyn Blackman MD Supervisor Inspection And Testing Kaur Elizalde RN Estimated Blood Loss 393 (QBL) Findings Consistent with Post-Op Diagnosis Specimens Cord blood, placenta Anesthesia Type L&D Only Epidural Exists Complications none Disposition Accompanied Patient To Recovery: Yes Disposition: L&D Description of Procedure The patient was placed operating table in the supine position with a leftward tilt. She was prepped and draped in standard sterile fashion. The anesthetic was tested and found to be adequate. A time-out was held, identifying correct patient, procedure, positioning and preoperative antibiotics. There were no concerns. A Pfannenstiel skin incision was made with a knife and taken down to the underlying layer of fascia. The fascia was incised in the midline with the knife and taken out laterally with scissors. The superior edge of the fascial incision was grasped, elevated and dissected off the underlying rectus both superiorly and inferiorly. The muscles were bluntly in the midline. The peritoneum was entered bluntly. The incision was then stretched. The bladder retractor was placed. The vesicouterine peritoneum was identified, entered with scissors and taken out laterally with scissors. The bladder flap was created digitally. A hysterotomy incision was created transversely in the lower uterine segment, final entry being accomplished in a blunt manner with the stripper machine operator's fingers. Clear amniotic fluid was encountered. The stripper machine operator's hand was used to elevate the head to the hysterotomy. The head was delivered using mild fundal pressure, and the shoulders and body followed without difficulty. The cord was clamped and cut and the infant was then handed off to the awaiting circus rider. Cord blood was obtained. The placenta was Manually extracted. The uterus was exteriorized, noting a baseball-sized protuberant fundal fibroid, and cleared of all clot and debris with moistened laparotomy sponges. The hysterotomy incision was repaired in two layers, the first in a running locked layer, the second in an imbricating layer. The ovary and tube were seen to be normal on the LEFT. The tube was absent on the RIGHT and no ovary was visualized directly on the RIGHT. A smooth bump on the RIGHT side of the uterus in line with the apparent utero-ovarian ligament may represent the RIGHT ovary enclosed within scar tissue and adherent to the posterior lower uterine segment, but this was not dissected to confirm. Note the rectum/sigmoid were densely adherent to the posterior uterine wall in this area as well. The uterus was gently replaced in the abdomen, and the gutters were cleared of clot and debris. A final inspection of the hysterotomy revealed good hemostasis. The rectus muscles were allowed to reapproximate naturally. The fascia was then reapproximated with 1 Vicryl in a running nonlocked manner. The fascia was examined and found to be free of defect following closure. The subcutaneous tissue was copiously irrigated and reapproximated with 0-chromic, then the skin edges were closed with 4-0 monocryl in a subcuticular fashion. A dermabond dressing was applied. The gonzalez was found to be draining clear yellow urine at completion of the procedure. I attest to the content of the Intraoperative Record and any orders documented therein. Any exceptions are noted below. I attest to the content of the Intraoperative Record and any orders documented therein. Any exceptions are noted below.
--- NOTE | 2024-06-10 14:41 | Anesthesia Procedure Note ---
Date of Service June 10, 2024 Anesthesia Post Epidural Note Vital Signs Vital Signs: Temp Pulse Resp BP Pulse Ox O2 Del Method 36.9 C 79 18 155/78 H 98 Room Air 06/10/24 11:02 06/10/24 14:36 06/10/24 12:30 06/10/24 14:36 06/10/24 14:36 06/10/24 07:16 Pain Intensity Lower Abdomen: Pain Intensity: 0 Notes Mental Status: alert / awake / arousable and participated in evaluation Nausea / Vomiting: adequately controlled Pain: adequately controlled Airway Patency, RR, SpO2: stable & adequate BP & HR: stable & adequate Hydration State: stable & adequate Neuraxial Anesthesia: was administered and sensory block is resolving Anesthetic Complications: no major complications apparent and Pt Satisfied with anesthetic care Epidural: Removed without complications and With tip intact
[2024-06-10] MEDS ORDERED: LACTATED RINGER'S 1,000 ML IV SCH (14:45)
[2024-06-10] MEDS: ePHEDrine sulfate 50 MG/ML AMP IV PRN (14:56)
[2024-06-10] MEDS ORDERED: BENZOCAINE 20% SPRY 85 APPLN/85 GM CAN EXT PRN (15:04)
[2024-06-10] MEDS ORDERED: HYDROCORTISONE ACETATE 25 MG SUPP PR PRN (15:04)
[2024-06-10] MEDS ORDERED: SENNA 8.6 MG TAB PO PRN (15:04)
[2024-06-10] MEDS ORDERED: MAGNESIUM HYDROXIDE SUSP 30 ML UDC PO PRN (15:04)
[2024-06-10] MEDS: CITRIC ACID/SODIUM CITRATE 15 ML UDC ONE (15:05)
[2024-06-10] MEDS: KETOROLAC 30 MG/ML VIAL ONE (15:08)
[2024-06-10] MEDS: DIPHTHER/TETAN/PERTUS Vaccine (Tdap, Adol/Adult) 0.5mL IM ONE (15:09)
[2024-06-10] MEDS: KETOROLAC 30 MG/ML VIAL IV SCH (15:35)
[2024-06-10] MEDS: SIMETHICONE 80 MG CHEW PO SCH (19:19)
[2024-06-10] MEDS: ACETAMINOPHEN 325 MG TAB PO SCH (20:58)
[2024-06-10] MEDS: DOCUSATE SODIUM 100 MG CAP PO SCH (20:58)
[2024-06-11] MEDS: LACTATED RINGER'S 1,000 ML IV SCH (01:23)
[2024-06-11] MEDS: MoRPHine SULFATE PF 1 MG/ML 10 ML AMP/VIAL EPI ONE (01:23)
[2024-06-11] MEDS: ACETAMINOPHEN 500 MG TAB PO SCH (01:25)
[2024-06-11] MEDS: LEVOTHYROXINE SODIUM 75 MCG TABLET PO SCH (05:51)
[2024-06-11 06:10] LABS: Basophils # (auto) 0.01 K/uL (0.00-0.20); Basophils % (auto) 0.1 %; Hematocrit (blood only) 34.7 % (37.0-47.0); Hemoglobin 12.1 g/dl (12.0-16.0); Immature Granulocytes # (auto) 0.06 K/uL (0.01-0.20); Immature Granulocytes % (auto) 0.4 %; Lymphocytes # (auto) 1.89 K/uL (1.20-3.40); Mean Corpuscular Hemoglobin 30.2 pg (25.0-34.0); Mean Corpuscular Hgb Conc 34.9 g/dL (32.0-36.0); Mean Corpuscular Volume 86.5 fL (80.0-100.0); Mean Platelet Volume 13.7 fL (9.4-12.4); Monocytes # (auto) 1.01 K/uL (0.11-0.59); Monocytes % (auto) 6.9 %; Neutrophils # (auto) 11.59 K/uL (1.40-6.50); Neutrophils % (auto) 79.6 %; Platelet Count 116 K/uL (130-400); RDW Coefficient of Variation 12.4 % (11.5-14.5); RDW Standard Deviation 39.2 fL (36.4-46.3); Red Blood Count 4.01 M/uL (4.20-5.40); White Blood Count 14.56 K/ul (4.8-10.8)
--- NOTE | 2024-06-11 07:08 | Obstetrical Progress Note ---
Date of Service June 11, 2024 Assessment & Plan (1) delivery delivered: Plan 33 years at 39+1week POG. #1POD following Section Both mom and baby doing well. Continue care as per protocol. Encouraged nursing with mother's milk. Encouraged ambulation. Encouraged deep breathing. Will observe today Admission and Anticipated Discharge Date Admission Date: June 09, 2024 Supervising Physician Co-Signing Physician Notes Resident Physician Supervision Note: I was present with Dr. Hinson during the history and exam. I discussed the case with the resident and agree with the findings and plan as documented in the note. Any exceptions or clarifications are listed here: stable doing well, h aving pain and cramps at times but pain meds helping. eating, voiding. ambulating. exam ff 2 down nt, incision c/d/i with dermabond. ext nt calves. no edema. pod#1 s/p c/s doing well. routine care. hgb noted. Documented By: Brianna Basurto MD, FACOG Subjective 33 years at 39+1 week POG. #1POD following delivery for Intermittent Tachycardia No active complains Both mom and baby doing well. Mom Lying comfortable on bed. Pain: Mild, intermittent, manageable on painkillers. Lochia: Moderate Diet: Regular OB diet Gas: Not aware of passing, but no abdominal distension Peeing: Passed Urine after gonzalez's removal. Denies burning, difficulty Ambulation: to Bathroom/ Corridor without any complication Answered her queries. Review of Systems Review of Systems: As per HPI Physical Exam Physical Exam: General: Alert and oriented. No acute distress. CVS: S1 S2+ No murmurs, regular rhythm. Respiratory: CTA bilaterally. No rhonchi, wheezes, or crackles. No increased work of breathing. Abdomen: Bowel sound +. Soft, nontender Uterus: Fundus firm and palpable few cm below the umbilicus. Incision site looks healthy: Dry, No swelling, Erythema Lower extremities: No LE edema. No deep calf pain. Results & Data Vital Signs (Past 12 Hours) Vital Signs Temp Pulse Resp BP Pulse Ox O2 Del Method 06/11/24 05:45 18 95 06/11/24 04:45 18 94 06/11/24 03:45 16 94 06/11/24 02:55 36.9 C 74 18 109/71 98 Room Air 06/11/24 02:45 18 97 06/11/24 01:45 18 98 06/11/24 00:45 16 98 06/10/24 23:45 18 98 06/10/24 23:04 36.6 C 69 18 135/79 99 Room Air 06/10/24 22:45 18 98 06/10/24 21:25 98 H 06/10/24 19:25 20 97 06/10/24 19:07 36.8 C 71 18 148/81 H 98 Room Air Resident Activity Tracking Resident Involvement: Resident Care Provided Care Provided: OB Delivery
[2024-06-11] MEDS ORDERED: HYDROmorphone INJ 0.5 MG/0.5 ML SYR IV PRN (08:20)
[2024-06-11] MEDS ORDERED: ONDANSETRON INJ 2 MG/ML 2 ML VIAL IV PRN (08:20)
[2024-06-11] MEDS ORDERED: PROMETHAZINE 12.5 MG/50.5 ML BAG IV PRN (08:20)
[2024-06-11] MEDS ORDERED: diphenhydrAMINE 50 MG/ML VIAL IV PRN (08:20)
[2024-06-11] MEDS: FERROUS SULFATE 325 MG TAB PO SCH (08:42)
[2024-06-11] MEDS: PRENATAL VITAMIN 1 TAB PO SCH (08:42)
[2024-06-11] MEDS: IBUPROFEN 600 MG TAB PO STA (08:53)
[2024-06-11] MEDS: CALCIUM CARBONATE 500 MG CHEWABLE TAB PO PRN (08:54)
[2024-06-11] MEDS: IBUPROFEN 600 MG TAB PO ONE (14:31)
[2024-06-11] MEDS ORDERED: KETOROLAC 30 MG/ML VIAL IV PRN (14:40)
[2024-06-11] MEDS: IBUPROFEN 600 MG TAB PO SCH (15:01)
[2024-06-11] MEDS: bisacodyL 5 MG TABEC PO SCH (20:23)
[2024-06-11] MEDS: oxyCODONE HCL IR 5 MG TAB (IMMEDIATE RELEASE) PO PRN (21:50)
[2024-06-11] MEDS: diphenhydrAMINE Capsule 25 MG CAP PO PRN (23:23)
[2024-06-12 07:09] LABS: Hematocrit (blood only) 29.4 % (37.0-47.0); Hemoglobin 10.1 g/dl (12.0-16.0); Mean Corpuscular Hemoglobin 29.7 pg (25.0-34.0); Mean Corpuscular Hgb Conc 34.4 g/dL (32.0-36.0); Mean Corpuscular Volume 86.5 fL (80.0-100.0); Mean Platelet Volume 12.8 fL (9.4-12.4); Platelet Count 100 K/uL (130-400); RDW Coefficient of Variation 12.6 % (11.5-14.5); RDW Standard Deviation 39.5 fL (36.4-46.3); White Blood Count 8.66 K/ul (4.8-10.8)
--- NOTE | 2024-06-12 08:31 | Obstetrical Progress Note ---
Date of Service June 12, 2024 Assessment & Plan (1) delivery delivered: Patient recovering well from 1'CS. Does have mild thrombocytopenia that has not yet shown recovery, though is not at a dangerously low level either. Mom is supplementing baby with formula due to baby losing some weight, so they are very comfortable staying another day for both baby monitoring and to recheck those platelets one more time on POD3. At that point if the Platelets are the only issue and not <50 could consider sending home with outpatient lab f/u. Subjective Ambulation: ambulating normally Voiding: no voiding problems Passing Gas:: Yes Diet Tolerance:: regular diet Lochia:: Small Feeding Type:: breast feeding (and bottle supplementation due to baby weight loss) Physical Exam Constitutional WD/WN, vitals as above Eyes PERRL, conjunctivae normal, anicteric sclerae Neck normal visual inspection Respiratory normal respiratory effort and able to speak in complete sentences; no respiratory distress and no labored breathing Cardiovascular Rate/Rhythm: regular rate and regular rhythm Extremities: no edema Chest (Breasts) Chest: normal inspection of chest Gastrointestinal (Abdomen) Inspection/Auscultation: abdomen normal to inspection Soft, postgravid Intact with surgical glue, c/d/i Psychiatric A+Ox3, euthymic affect Genitourinary OB Exam Abdomen: + fundal height Fundus: + firm and + relation to umbilicus (fundus just below umbilicus); not tender Results & Data Vital Signs (Past 12 Hours) Vital Signs Temp Pulse Resp BP Pulse Ox O2 Del Method 06/11/24 23:45 98.6 F 75 16 117/78 97 Room Air 06/11/24 21:30 98.6 F 75 18 115/74 98 Room Air
[2024-06-12] MEDS ORDERED: bisacodyL 10 MG SUPP PR PRN (14:40)
[2024-06-12] MEDS: IBUPROFEN 600 MG TAB PO PRN (15:40)
[2024-06-12] MEDS: ACETAMINOPHEN 325 MG TAB PO PRN (21:44)
[2024-06-13 04:26] VITALS: O2SAT 97
[2024-06-13 06:33] LABS: Hematocrit (blood only) 29.2 % (37.0-47.0); Hemoglobin 10.1 g/dl (12.0-16.0); Mean Corpuscular Hemoglobin 30.1 pg (25.0-34.0); Mean Corpuscular Hgb Conc 34.6 g/dL (32.0-36.0); Mean Corpuscular Volume 87.2 fL (80.0-100.0); Mean Platelet Volume 12.1 fL (9.4-12.4); Platelet Count 121 K/uL (130-400); RDW Coefficient of Variation 12.7 % (11.5-14.5); RDW Standard Deviation 40.2 fL (36.4-46.3); Red Blood Count 3.35 M/uL (4.20-5.40); White Blood Count 7.99 K/ul (4.8-10.8)
--- NOTE | 2024-06-13 06:54 | Obstetrical Progress Note ---
Date of Service June 13, 2024 Assessment & Plan (1) delivery delivered: Plan 33 years at 39+1week POG. #3 POD following Section Both mom and baby doing well. Feels ready to go home today. Discharge today Follow up after 6 weeks for visit. Admission and Anticipated Discharge Date Admission Date: June 09, 2024 Subjective 33 years at 39+1 week POG. #3POD following delivery for Intermittent Tachycardia No active complains Both mom and baby doing well. Mom Lying comfortable on bed. Pain: Reports pain in periumbilical area, no pain in incision site Lochia: Moderate Diet: Regular OB diet Gas: Not aware of passing, but no abdominal distension Peeing: Normal Ambulation: to Bathroom/ Corridor without any complication Answered her queries. Review of Systems Review of Systems: As per HPI Physical Exam Physical Exam: General: Alert and oriented. No acute distress. CVS: S1 S2+ No murmurs, regular rhythm. Respiratory: CTA bilaterally. No rhonchi, wheezes, or crackles. No increased work of breathing. Abdomen: Bowel sound +. Soft, nontender Uterus: Fundus firm and palpable few cm below the umbilicus. Incision site looks healthy: Dry, No swelling, Erythema Lower extremities: No LE edema. No deep calf pain. Results & Data Vital Signs (Past 12 Hours) Vital Signs Temp Pulse Resp BP Pulse Ox O2 Del Method 06/13/24 00:30 36.9 C 74 16 127/82 97 Room Air 06/12/24 20:00 36.8 C 86 16 125/84 99 Room Air Resident Activity Tracking Resident Involvement: Resident Care Provided Care Provided: OB Delivery
[2024-06-13 10:05] VITALS: BP 126/82; RESP 20; TEMP 98.6
[2024-06-13 10:55] VITALS: PULSE 82
--- NOTE | 2024-06-15 09:46 | Discharge Summary ---
Date of Service June 15, 2024 Admission HPI Per Admitting Provider 33 yo G1 at 39 1/7 wga presents for eiol. +FM; denies ctx, LOF, VB. 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 regular cycles denies hx stis Admission Exam (Per Admitting) Constitutional WD/WN, vitals as above Eyes PERRL, conjunctivae normal, anicteric sclerae Neck normal visual inspection Respiratory normal respiratory effort and able to speak in complete sentences; no respiratory distress and no labored breathing Cardiovascular Rate/Rhythm: regular rate and regular rhythm Extremities: no edema Chest (Breasts) Chest: normal inspection of chest Gastrointestinal (Abdomen) Inspection/Auscultation: abdomen normal to inspection Psychiatric A+Ox3, euthymic affect Genitourinary OB Exam Abdomen: + fundal height Discharge Data Consultations 06/09/24 08:32 Consult Anesthesiology Stat 06/10/24 13:31 Consult Anesthesiology Stat Procedures Performed Operation Date: 06/10/24 13:35 Actual Procedures p Section in LD with result of live female child at 1404 - Lyn Blackman MD Hospital Course (1) delivery delivered: Patient recovering well from 1'CS. Does have mild thrombocytopenia that has not yet shown recovery, though is not at a dangerously low level either. Mom is supplementing baby with formula due to baby losing some weight, so they are very comfortable staying another day for both baby monitoring and to recheck those platelets one more time on POD3. At that point if the Platelets are the only issue and not <50 could consider sending home with outpatient lab f/u. Supervising Physician Co-Signing Physician Notes Resident Physician Supervision Note: I was present with Dr. Hinson during the history and exam. I discussed the case with the resident and agree with the findings and plan as documented in the note. Any exceptions or clarifications are listed here: stable doing well, having pain and cramps at times but pain meds helping. eating, voiding. ambulating. exam ff 2 down nt, incision c/d/i with dermabond. ext nt calves. no edema. pod#1 s/p c/s doing well. routine care. hgb noted. Documented By: Brianna Basurto MD, FACOG Coding Level of Care Code None Diagnoses delivery delivered O82
== END 2024-06-13 16:25 | disposition home or self-care (01) | DRG 787 ==
LOC: EDSTATUS 07:30 → 4S1 07:52 → 4E2 06-10 17:25